=== PATIENT | male | born 1990 | race Hispanic/Latino ===

== ENCOUNTER 2020-04-22 18:27 | Emergency (ER) | payer SELFPAY ==
[~2020-04-22 18:27] MED LIST: Iopamidol-370 76% 500 ML 1 ML ONE
[2020-04-22] MEDS ORDERED: Morphine 4 MG/ML VIAL ONE (20:16)
[2020-04-22] MEDS ORDERED: Ondansetron PF 4 MG/2 ML Vial ONE (20:16)
[2020-04-22] MEDS ORDERED: Ketorolac Tromethamine 30 MG/ML VIAL ONE (20:16)
--- NOTE | 2020-04-22 20:37 | RAD ---
SINGLE VIEW OF THE CHEST: 04/22/20 HISTORY: Epigastric pain that is worse with deep breathing. FINDINGS: Single view of the chest shows normal sized cardiomediastinal silhouette. There is a questionable are a of air space opacity projecting over the left mid lung. No pleural effusion or pneumothorax are see n. The bones are unremarkable. IMPRESSION: Questionable left sided pulmonary infiltrate. POS: EAA
[2020-04-22 20:50] LABS: #Basophils 0.1 thou/uL (0.0-0.2); #Eosinphils 0.2 thou/uL (0.0-0.7); #Monocytes 0.7 thou/uL (0.11-0.59); #Neutrophils 5.9 thou/uL (1.40-6.50); %Basophils 0.9 % (0.0-1.0); %Eosinophils 2.6 % (0.0-10.0); %Lymphocytes 22.2 % (21.0-51.0); %Monocytes 7.8 % (0.0-10.0); %Neutrophils 66.5 % (42.0-75.0); Mean Corpuscular HGB CONC 34.1 g/dL (32.0-36.0); Mean Corpuscular Hemoglobin 33.4 pg (27.0-31.0); Mean Corpuscular Volume 97.9 fL (78.0-98.0); Mean Platelet Volume 7.4 fL (7.4-10.4); Platelet Count 263 thou/uL (130-400); RBC Distribution Width 11.2 % (11.5-14.5); Red Blood Cell (RBC) Count 4.49 mill/uL (4.70-6.10); White Blood Cell (WBC) Count 8.9 thou/uL (4.8-10.8)
[2020-04-22 21:12] LABS: ALT (SGPT) 62 U/L (8-55); AST (SGOT) 43 U/L (5-34); Albumin 4.5 g/dL (3.5-5.0); Alkaline Phosphatase 61 U/L (40-110); Anion Gap 14 mmol/L (10-20); BUN (Urea Nitrogen) 17 mg/dL (8.9-20.6); Bilirubin, Total 0.3 mg/dL (0.2-1.2); Calc. Creatinine Clearance 0 mL/min (70-130); Calcium 9.4 mg/dL (7.8-10.44); Carbon Dioxide 26 mmol/L (22-29); Chloride 104 mmol/L (98-107); Estimated GFR-MDRD Greater than 90; Globulin 3.2 g/dL (2.4-3.5); Glucose 96 mg/dL (70-105); Lipase 21 U/L (8-78); Potassium 3.7 mmol/L (3.5-5.1); Protein, Total 7.7 g/dL (6.0-8.3); Sodium 140 mmol/L (136-145)
--- NOTE | 2020-04-23 07:33 | CT ---
CTA OF THE CHEST WITH CONTRAST: HISTORY: Left upper quadrant abdominal pain. TECHNIQUE: Multiple contiguous axial images were obtained in a CTA of the chest with contrast performed per pul onary embolism protocol. Three-D oblique MIP reformats and direct coronal reformats were performed. FINDINGS: The pulmonary arteries are well opacified without filling defects to suggest pulmonary emboli. The h eart is normal in size without focal cardiac abnormality. No hilar or mediastinal lymphadenopathy ar e seen. No focal infiltrates or masses are seen in the lungs. No pneumothorax or pleural effusion are seen. The chest wall soft tissues and bones of the thorax are unremarkable. Please see dedicated abdominal CT for findings below the diaphragm. IMPRESSION: No evidence of pulmonary thromboembolism. POS: EAA
--- NOTE | 2020-04-23 07:35 | CT ---
CT ABDOMEN AND PELVIS WITH COTNRAST: HISTORY: Left upper quadrant abdominal pain that has progressively worsened. TECHNIQUE: Multiple contiguous axial images were obtained in a CT of the abdomen and pelvis with contrast. Sagi ttal and coronal reformats were performed. FINDINGS: The liver, gallbladder, kidneys, adrenal glands, spleen, and pancreas are unremarkable. No free air, free fluid, or stranding changes are seen in the abdomen or pelvis. The large and small bowel are unremarkable. The appendix is normal. No gastric abnormality is appre ciated. No abdominal or pelvic lymphadenopathy are seen. The osseous structures, visualized inferior thorax, and abdominal wall soft tissues are unremarkable. IMPRESSION: No evidence of acute intraabdominal/pelvic abnormality. POS: EAA
== END 2020-04-22 23:11 | disposition home or self-care (01) ==
LOC: ERS 18:27
DX: R07.89 Other chest pain (principal); R94.5 Abnormal results of liver function studies; R10.12 Left upper quadrant pain
CPT/HCPCS: 71045; 71275; 74177; 80053; 83690; 84484; 85025; 85379; 93005; 96374; 96375; J1885; J2270; J2405; Q9967

== ENCOUNTER 2021-05-17 01:46 | Emergency (ER) | payer SELFPAY ==
[2021-05-17] MEDS ORDERED: Famotidine 20 MG TAB ONE (02:09)
[2021-05-17] MEDS ORDERED: diphenhydrAMINE 25 MG CAP ONE (02:09)
[2021-05-17] MEDS ORDERED: predniSONE 20 MG TAB ONE (02:10)
== END 2021-05-17 03:55 | disposition home or self-care (01) ==
LOC: ERS 01:46
DX: L50.0 Allergic urticaria (principal)
CPT/HCPCS: 99282; J7512